=== PATIENT | male | born 1930 | race Hispanic/Latino ===

== ENCOUNTER 2017-09-08 12:26 | Inpatient (IN) | payer MEDICARE ==
[2017-09-08 15:25] VITALS: BMI 25.2
[2017-09-08] MEDS ORDERED: Sodium Chloride 0.9% 1,000 ML IV SCH (15:30)
[2017-09-08 17:02] LABS: Troponin I 0.098 ng/mL (< 0.028)
[2017-09-08] MEDS ORDERED: Ondansetron ODT 4 MG TAB PO PRN (19:03)
[2017-09-08] MEDS ORDERED: Dextrose 50% Abboject 50 ML SYRINGE SLOW IVP PRN (19:03)
[2017-09-08] MEDS ORDERED: PROVENTIL INHALER 6.7 G (200 INHALATIONS) INH PRN (19:03)
[2017-09-08] MEDS ORDERED: Dextrose 5% in Water 1,000 ML IV PRN (19:03)
[2017-09-08] MEDS ORDERED: Acetaminophen 500 MG TAB PO PRN (19:03)
[2017-09-08] MEDS ORDERED: Guaifenesin DM 100-10/5 ML UDCUP PO PRN (19:03)
[2017-09-08] MEDS ORDERED: Ondansetron HCl/PF 4 MG/2 ML Vial IVP PRN (19:03)
[2017-09-08] MEDS ORDERED: HumaLOG 300 UNITS/3 ML VIAL SC PRN (19:03)
[2017-09-08] MEDS ORDERED: cloNIDine 0.1 MG TAB PO PRN (19:03)
[2017-09-08] MEDS ORDERED: hydrALAZINE 20 MG/ML VIAL SLOW IVP PRN (19:03)
[2017-09-08] MEDS: Docusate 100 MG CAP PO SCH (20:53)
[2017-09-08] MEDS: Famotidine 20 MG TAB PO SCH (20:53)
[2017-09-08] MEDS: Oseltamivir 6 MG/ML ORAL SUSP PO SCH (20:55)
[2017-09-08] MEDS: Insulin NPH/Reg Insulin Hm 300 UNITS/3 ML VIAL SC SCH (20:56)
[2017-09-08] MEDS: Sodium Chloride 0.9% 1,000 ML IV SCH (20:56)
--- NOTE | 2017-09-09 02:10 | HP ---
DATE OF ADMISSION: 09/08/2017 PRIMARY CARE PHYSICIAN: Anna Elam MD with [facility] in [place], [place]. CHIEF COMPLAINT: Cough and confusion. HISTORY OF PRESENT ILLNESS: This is an 87-year-old male who presented to [facility] after family noted the patient with confusion, difficulty standing and falling at loyd e. The patient was noted with fever, increased cough and confusion in the company secretary hours by his spouse. The patient apparently developed symptoms overnight, however, was noted looking flushed wit h increased cough and congestion. No specific exposure history per family report and the states the patient received influenza and pneumonia vaccinations this season. The patient was noted in the emergency room with a temperature of 101.9 degrees Fahrenheit and was positive for influenza A. The family reports no specific interventions were performed at home and patient did not receive any medi cations for fever. The patient does complain of some general body aches, mild shortness of breath an d dry cough. Chest imaging performed in the emergency room showed no acute process; however, nasal s wab was positive for influenza A. The patient did receive Tamiflu x1 dose as well as 1 gram of Tylen ol, DuoNebs and intravenous normal saline. The patient was transferred to the observation unit for f urther evaluation. PAST MEDICAL HISTORY: 1. Remote tobacco use. 2. Status post CVA with residual right-sided weakness requiring a rolling walker for ambulation and standby assistance. 3. Hypertension. 4. Diabetes mellitus type 2, insulin requiring. 5. Chronic kidney disease stage III. 6. 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 PAST SURGICAL HISTORY: 1. Status post cataract removal. 2. Status post appendectomy. 3. Status post TURP for bladder outlet obstruction. 4. Status post left inguinal hernia repair. CURRENT MEDICATIONS: 1. Ventolin HFA 2 puffs inhaled q.6 h. p.r.n. 2. Amlodipine 10 mg 1 tab p.o. daily. 3. Enteric coated aspirin 81 mg 1 tab p.o. daily. 4. Colace 100 mg 1 tab p.o. b.i.d. 5. Glipizide XL 5 mg p.o. b.i.d. 6. Hydrochlorothiazide 25 mg p.o. daily. 7. Glargine insulin 55 units subcutaneously b.i.d. 8. NPH insulin 70/30 of 25 units subcutaneously b.i.d. 9. Multivitamin 1 tab p.o. daily. 10. Ranitidine 150 mg p.o. b.i.d. 11. Flomax 0.4 mg p.o. daily. ALLERGIES: No known drug allergies. FAMILY HISTORY: Positive for coronary artery disease. SOCIAL HISTORY: Patient is , resides in [facility]. Accompanied by multiple family members in the hospital room, all without mask or respiratory protective equipment. Remote history of tobacco use. No alcohol, tobacco or illicit drug use. Ambulatory with the use of a rolling walke r with standby assistance. REVIEW OF SYSTEMS: The following complete review of systems was negative, unless otherwise mentioned in the HPI or below: Constitutional: Weight loss or gain, ability to conduct usual activities. Skin: Rash, itching. Ey es: Double vision, pain. ENT/Mouth: Nose bleeding, neck stiffness, pain, tenderness. Cardiovascul ar: Palpitations, dyspnea on exertion, orthopnea. Respiratory: Shortness of breath, wheezing, coug h, hemoptysis, fever or night sweats. Gastrointestinal: Poor appetite, abdominal pain, heartburn, n ausea, vomiting, constipation, or diarrhea. Genitourinary: Urgency, frequency, dysuria, nocturia. Musculoskeletal: Pain, swelling. Neurologic/Psychiatric: Anxiety, depression. Allergy/Immunologic : Skin rash, bleeding tendency. PHYSICAL EXAMINATION: VITAL SIGNS: On admission, blood pressure 140/65, pulse 96, respiratory rate is 20, temperature 101. 8 degrees Fahrenheit, O2 saturation 97% on 2 liters per minute by nasal cannula. GENERAL APPEARANCE: This is an 87-year-old male, alert, responsive, in mild distress. HEENT: Pupils are equal, round, and reactive to light and accommodation. Extraocular muscles are in tact. No scleral icterus, no conjunctival injection. Nares patent. OP is clear. Oral mucosa dry. NECK: Supple, no cervical adenopathy, no thyromegaly, no carotid bruits, no JVD appreciated. Cervic al spine with full active and passive range of motion. No meningeal signs appreciated. CHEST: Lungs are clear to auscultation bilaterally. CARDIOVASCULAR: S1, S2 with tachycardia. ABDOMEN: Rounded, soft, nontender, nondistended. Bowel sounds are positive in all four quadrants. There is no hepatosplenomegaly, no abdominal bruits, no rebound or guarding appreciated. EXTREMITIES: Warm and dry with fair turgor. Warm to touch. Flushing noted diffusely. Pulses are p alpable distally at the dorsalis pedis, posterior tibial, and popliteal arteries bilaterally. Capill marco antonio refill less than 2 seconds. NEUROLOGIC: Cranial nerves II-XII are grossly intact. The patient not observed ambulatory during th is exam. Alert and oriented x2. PERTINENT LABORATORY AND X-RAY FINDINGS: Sodium 133, potassium 3.4, chloride 96, CO2 of 24, anion ga p 16, BUN 22, creatinine 2.03 with estimated GFR 31, glucose 188. Lactic acid level 1.6, calcium 9.0 . LFTs within normal limits. Troponin I ranged between 0.090-0.10. CBC showed a white blood cell c ount of 7.0, hemoglobin 18, hematocrit 54, platelet count 227 with 68% neutrophils. Urinalysis posit brayan for protein and glucose. Nasal swab showed influenza A positive, 09/08/2017. Portable chest x-r ay dated 09/08/2017 showed no acute cardiopulmonary process. CT of the brain without contrast dated 09/08/2017 showed no acute intracranial process. Moderate chronic ischemic white matter changes note d. EKG dated 09/08/2017 by my interpretation shows sinus mechanism with heart rates in the 90s. Nor mal R-wave progression noted in the precordial leads. Questionable right bundle branch block pattern . Normal axis. No acute ST-T wave changes appreciated. ASSESSMENT AND PLAN: 1. Influenza A positive. The patient will be placed in observation status. We will continue Tamifl u 30 mg p.o. b.i.d. secondary to chronic kidney disease stage III. Continue general supportive measu res, Ventolin HFA 2 puffs inhaled q.6 h. p.r.n. Oxygen as needed to keep O2 saturations greater than or equal to 90%. 2. Acute metabolic encephalopathy. Secondarily to #1 and likely febrile delirium. Continue support brayan measures as outlined in #1. 3. Chronic kidney disease stage III. Continue intravenous normal saline at 100 mL per hour. Avoid nephrotoxic agents and contrast media. Repeat creatinine in the a.m. 4. Diabetes mellitus type 2, insulin requiring. Insulin sliding scale for reflexive coverage. Cont inue NPH 70/30 of 25 units subcutaneously b.i.d. ADA diet. 5. Elevated troponin I. Suspect demand ischemia in the context of an acute infectious process. No current evidence to suggest acute coronary syndrome. We will continue to monitor clinical response. Continue aspirin 81 mg daily. 6. Prophylaxis. Sequential compression devices while in bed. Pepcid 20 mg p.o. b.i.d. Respiratory precautions. 7. Code status is FULL. Surrogate medical decision maker is patient's spouse.
[2017-09-09] MEDS: Sodium Chloride 0.9% 1,000 ML IV SCH ×2 (02:46→10:12)
[2017-09-09 06:25] LABS: Anion Gap 10 mmol/L (10-20); BUN (Urea Nitrogen) 26 mg/dL (8.4-25.7); Calc. Creatinine Clearance 32 mL/min (70-130); Carbon Dioxide 21 mmol/L (23-31); Chloride 105 mmol/L (98-107); Estimated GFR-MDRD 41
[2017-09-09 06:31] LABS: Hematocrit 45.5 % (42.0-52.0); Red Blood Cell (RBC) Count 4.81 mill/uL (4.70-6.10); White Blood Cell (WBC) Count 7.2 thou/uL (4.8-10.8)
[2017-09-09 06:32] LABS: Band 12 % (5-11); Mean Platelet Volume 7.8 fL (7.4-10.4); Neutrophil 61 % (42-75)
[2017-09-09] MEDS: Tamsulosin HCl 0.4 MG CAP PO SCH (08:09)
[2017-09-09] MEDS: Docusate 100 MG CAP PO SCH ×2 (08:09→21:21)
[2017-09-09] MEDS: Multivitamin W/ Minerals 1 TAB PO SCH (08:09)
[2017-09-09] MEDS: Amlodipine 10 MG TAB PO SCH (08:09)
[2017-09-09] MEDS: Famotidine 20 MG TAB PO SCH ×2 (08:10→21:21)
[2017-09-09] MEDS: Aspirin 81 mg Enteric Coated Tablet PO SCH (08:10)
--- NOTE | 2017-09-09 09:13 | PDOC.PN ---
- Subjective Encounter Start Date: 09/09/17 Encounter Start Time: 08:35 Subjective: f/u for Influenza A on Tamiflu. Still with prominent cough. reports pt -: unable to stand up today. - Objective Resuscitation Status: Resuscitation Status FULL:Full Resuscitation MAR Reviewed: Yes Vital Signs & Weight: Vital Signs (12 hours) Temp Pulse Resp BP BP Pulse Ox 09/09/17 08:09 63 09/09/17 08:00 98.4 F 63 16 09/09/17 07:40 98.4 F 58 L 16 115/59 L 97 09/09/17 02:58 99.1 F 63 20 117/69 96 09/08/17 23:45 99.0 F 67 22 H 129/62 97 Weight Weight 157 lb 4.8 oz I&O: 09/08/17 09/09/17 09/10/17 06:59 06:59 06:59 Intake Total 1991 Balance 1991 Result Diagrams: 09/09/17 05:25 09/09/17 05:25 Additional Labs: Accuchecks 09/09/17 09/08/17 09/08/17 05:25 20:55 16:44 POC Glucose 80 223 H 188 H Microbiology 09/08/17 09:10 Nasal swab Influenza Types A,B Direct EIA - Final Laboratory Tests 09/08/17 09/08/17 09/08/17 08:32 08:32 13:11 Sodium 133 L Potassium 3.4 L Creatinine 2.03 H Troponin I 0.090 H 0.100 H 09/08/17 16:24 Sodium Potassium Creatinine Troponin I 0.098 H EKG Reviewed by me: Yes (Tele - SR) Phys Exam - Physical Examination Constitutional: NAD HEENT: PERRLA, oral pharynx no lesions Neck: no JVD, supple bilat inspiratory and expiratory wheezing Cardiovascular: RRR Gastrointestinal: soft, non-tender, no distention, positive bowel sounds Musculoskeletal: no edema, pulses present Neurological: normal sensation, moves all 4 limbs Skin: normal turgor, cap refill <2 seconds Dx/Plan (1) Influenza A Code(s): J10.1 - FLU DUE TO OTH IDENT INFLUENZA VIRUS W OTH RESP MANIFEST Status: Acute Comment: Continue Tamiflu 30mg BID, respiratory isolation, add Duonebs q4h (2) MARIE (acute kidney injury) Code(s): N17.9 - ACUTE KIDNEY FAILURE, UNSPECIFIED Status: Acute Comment: Mild improvement, continue IVF NS at 50ml/h, avoid nephrotoxic meds (3) Hypokalemia Code(s): E87.6 - HYPOKALEMIA Status: Acute Comment: ? subacute, KCL 40meq BID x 4 doses, recheck K+ level in am (4) Hyponatremia Code(s): E87.1 - HYPO-OSMOLALITY AND HYPONATREMIA Status: Chronic (5) Physical deconditioning Code(s): R53.81 - OTHER MALAISE Status: Acute Comment: PT evaluation, fall risk (6) CKD (chronic kidney disease), stage IV Code(s): N18.4 - CHRONIC KIDNEY DISEASE, STAGE 4 (SEVERE) Status: Chronic (7) Diabetes type 2, controlled Code(s): E11.9 - TYPE 2 DIABETES MELLITUS WITHOUT COMPLICATIONS Status: Chronic - Plan plan discussed w/ family, PT/OT, social worker, respiratory therapy, DVT proph w/SCDs Continue Tamiflu 30mg BID -: Respiratory isolation -: Continue IVF's -: Add Duonebs q4h -: Convert to inpt status today * AM lab: BMP
[2017-09-09] MEDS: Oseltamivir 6 MG/ML ORAL SUSP PO SCH ×2 (10:12→21:22)
[2017-09-09] MEDS: Insulin NPH/Reg Insulin Hm 300 UNITS/3 ML VIAL SC SCH ×2 (10:13→21:21)
[2017-09-09] MEDS: HumaLOG 300 UNITS/3 ML VIAL SC PRN ×2 (11:52→17:29)
[2017-09-09] MEDS: Potassium Chloride 20 MEQ TAB PO SCH (17:30)
[2017-09-10] MEDS: Sodium Chloride 0.9% 1,000 ML IV SCH ×2 (06:13→13:51)
[2017-09-10 06:35] LABS: Anion Gap 9 mmol/L (10-20); BUN (Urea Nitrogen) 26 mg/dL (8.4-25.7); Calc. Creatinine Clearance 32 mL/min (70-130); Calcium 8.1 mg/dL (7.8-10.44); Carbon Dioxide 22 mmol/L (23-31); Chloride 105 mmol/L (98-107); Estimated GFR-MDRD 42
[2017-09-10] MEDS: Aspirin 81 mg Enteric Coated Tablet PO SCH (09:26)
[2017-09-10] MEDS: Multivitamin W/ Minerals 1 TAB PO SCH (09:26)
[2017-09-10] MEDS: Tamsulosin HCl 0.4 MG CAP PO SCH (09:26)
[2017-09-10] MEDS: Famotidine 20 MG TAB PO SCH ×2 (09:26→21:24)
[2017-09-10] MEDS: Potassium Chloride 20 MEQ TAB PO SCH ×2 (09:26→17:04)
[2017-09-10] MEDS: Amlodipine 10 MG TAB PO SCH (09:27)
[2017-09-10] MEDS: Docusate 100 MG CAP PO SCH ×2 (09:27→22:07)
[2017-09-10] MEDS: Insulin NPH/Reg Insulin Hm 300 UNITS/3 ML VIAL SC SCH ×2 (09:28→22:08)
[2017-09-10] MEDS: Oseltamivir 6 MG/ML ORAL SUSP PO SCH ×2 (11:34→21:24)
--- NOTE | 2017-09-10 13:32 | PDOC.PN ---
- Subjective Encounter Start Date: 09/10/17 Encounter Start Time: 13:30 Subjective: no complaints - Objective Resuscitation Status: Resuscitation Status FULL:Full Resuscitation MAR Reviewed: Yes Vital Signs & Weight: Vital Signs (12 hours) Temp Pulse Resp BP BP Pulse Ox Pulse Ox 09/10/17 11:30 98.1 F 86 24 H 139/65 96 09/10/17 09:58 96 09/10/17 09:30 69 18 96 09/10/17 08:34 98.7 F 69 20 124/65 95 09/10/17 08:00 98.7 F 69 18 95 09/10/17 06:06 74 16 95 09/10/17 03:30 98.5 F 77 18 115/59 L 97 09/10/17 02:02 67 16 95 Pulse Ox 09/10/17 11:30 09/10/17 09:58 96 09/10/17 09:30 09/10/17 08:34 09/10/17 08:00 09/10/17 06:06 09/10/17 03:30 09/10/17 02:02 Weight Weight 157 lb 3.2 oz I&O: 09/09/17 09/10/17 09/11/17 06:59 06:59 06:59 Intake Total 1991 807 Output Total 600 Balance 1991 207 Result Diagrams: 09/09/17 05:25 09/10/17 05:14 Additional Labs: Accuchecks 09/10/17 09/09/17 09/09/17 11:36 20:18 16:50 POC Glucose 157 H 203 H 264 H Radiology Reviewed by me: Yes Phys Exam - Physical Examination Constitutional: NAD HEENT: PERRLA, moist MMs, sclera anicteric Neck: supple, full ROM Respiratory: wheezing present Cardiovascular: RRR, no significant murmur Gastrointestinal: soft, non-tender, positive bowel sounds Musculoskeletal: no edema, pulses present Neurological: non-focal, normal sensation, moves all 4 limbs Psychiatric: normal affect Deviation from normal: alert and oriented to person only Skin: no rash Dx/Plan (1) Influenza A Code(s): J10.1 - FLU DUE TO OTH IDENT INFLUENZA VIRUS W OTH RESP MANIFEST Status: Acute Comment: Continue Tamiflu 30mg BID, respiratory isolation, add Duonebs q4h (2) CKD (chronic kidney disease), stage IV Code(s): N18.4 - CHRONIC KIDNEY DISEASE, STAGE 4 (SEVERE) Status: Chronic (3) Diabetes type 2, controlled Code(s): E11.9 - TYPE 2 DIABETES MELLITUS WITHOUT COMPLICATIONS Status: Chronic (4) Dyslipidemia Code(s): E78.5 - HYPERLIPIDEMIA, UNSPECIFIED Status: Chronic (5) Hypertension Code(s): I10 - ESSENTIAL (PRIMARY) HYPERTENSION Status: Chronic - Plan cont current plan of care continue anti viral, mentation may be near baseline, will d/w family * .
[2017-09-11 05:57] LABS: Anion Gap 12 mmol/L (10-20); BUN (Urea Nitrogen) 17 mg/dL (8.4-25.7); Calc. Creatinine Clearance 39 mL/min (70-130); Carbon Dioxide 18 mmol/L (23-31); Chloride 111 mmol/L (98-107); Estimated GFR-MDRD 51
[2017-09-11] MEDS: Insulin NPH/Reg Insulin Hm 300 UNITS/3 ML VIAL SC SCH ×2 (10:00→23:11)
[2017-09-11] MEDS: Potassium Chloride 20 MEQ TAB PO SCH ×2 (10:01→18:04)
[2017-09-11] MEDS: Oseltamivir 6 MG/ML ORAL SUSP PO SCH ×2 (10:01→23:32)
[2017-09-11] MEDS: Multivitamin W/ Minerals 1 TAB PO SCH (10:01)
[2017-09-11] MEDS: Docusate 100 MG CAP PO SCH ×2 (10:02→23:12)
[2017-09-11] MEDS: Amlodipine 10 MG TAB PO SCH (10:02)
[2017-09-11] MEDS: Famotidine 20 MG TAB PO SCH ×2 (10:02→23:12)
[2017-09-11] MEDS: Tamsulosin HCl 0.4 MG CAP PO SCH (10:02)
[2017-09-11] MEDS: Aspirin 81 mg Enteric Coated Tablet PO SCH (10:02)
[2017-09-11] MEDS: Sodium Chloride 0.9% 1,000 ML IV SCH (10:47)
[2017-09-11] MEDS: HumaLOG 300 UNITS/3 ML VIAL SC PRN (12:48)
--- NOTE | 2017-09-11 13:39 | PDOC.PN ---
- Subjective Encounter Start Date: 09/11/17 Encounter Start Time: 13:38 Subjective: pt feels better, reports mentation near baseline - Objective Resuscitation Status: Resuscitation Status FULL:Full Resuscitation Vital Signs & Weight: Vital Signs (12 hours) Temp Pulse Resp BP BP BP Pulse Ox 09/11/17 12:00 97.6 F 65 16 127/63 94 L 09/11/17 10:02 67 137/74 09/11/17 07:59 97.1 F L 67 20 137/74 100 09/11/17 04:57 98.2 F 73 18 130/68 94 L 09/11/17 02:44 65 16 95 Weight Weight 160 lb I&O: 09/10/17 09/11/17 09/12/17 06:59 06:59 06:59 Intake Total 807 797 Output Total 600 Balance 207 797 Result Diagrams: 09/09/17 05:25 09/11/17 04:57 Additional Labs: Accuchecks 09/11/17 09/11/17 09/10/17 12:22 05:46 21:58 POC Glucose 268 H 160 H 79 09/10/17 16:54 POC Glucose 82 Phys Exam - Physical Examination Constitutional: NAD HEENT: PERRLA, moist MMs, sclera anicteric Neck: supple, full ROM Respiratory: wheezing present rhonchi Cardiovascular: RRR Gastrointestinal: soft, non-tender Musculoskeletal: no edema Neurological: non-focal, moves all 4 limbs Psychiatric: normal affect Deviation from normal: alert and oriented x2 Dx/Plan (1) Influenza A Code(s): J10.1 - FLU DUE TO OTH IDENT INFLUENZA VIRUS W OTH RESP MANIFEST Status: Acute Comment: Continue Tamiflu 30mg BID, respiratory isolation, add Duonebs q4h (2) CKD (chronic kidney disease), stage IV Code(s): N18.4 - CHRONIC KIDNEY DISEASE, STAGE 4 (SEVERE) Status: Chronic (3) Diabetes type 2, controlled Code(s): E11.9 - TYPE 2 DIABETES MELLITUS WITHOUT COMPLICATIONS Status: Chronic (4) Dyslipidemia Code(s): E78.5 - HYPERLIPIDEMIA, UNSPECIFIED Status: Chronic (5) Hypertension Code(s): I10 - ESSENTIAL (PRIMARY) HYPERTENSION Status: Chronic - Plan cont current plan of care, respiratory therapy MRI pending, continue duonebs * .
--- NOTE | 2017-09-11 15:35 | MRI ---
MRI of the brain without contrast: COMPARISON: 02/27/15. HISTORY: History of stroke. Speech and gait deficits. TECHNIQUE: Multiplanar, multisequence MR images were obtained of the brain without contrast. FINDINGS: This exam is limited secondary to motion artifact. There are diffuse scattered foci of high T2/FLAIR signal in the subcortical and periventricular white matter, likely secondary to small-vessel ischemi c disease. No restricted diffusion is seen to suggest an acute infarction. There is no evidence of hydrocephalus, intracranial hemorrhage, or extraaxial fluid collection. The expected flow voids are present. The corpus callosum, pituitary, and craniocervical junction are unr emarkable. The calvarium and overlying soft tissues are unremarkable. Mild mucosal thickening is seen in the pa ranasal sinuses. Fluid is seen in the bilateral mastoid air cells, left greater than right. IMPRESSION: Extensive small-vessel ischemic disease without acute intracranial abnormality. POS: RAMO
[2017-09-12 05:27] LABS: Anion Gap 10 mmol/L (10-20); BUN (Urea Nitrogen) 15 mg/dL (8.4-25.7); Calc. Creatinine Clearance 42 mL/min (70-130); Calcium 8.2 mg/dL (7.8-10.44); Carbon Dioxide 16 mmol/L (23-31); Chloride 112 mmol/L (98-107); Estimated GFR-MDRD 55
[2017-09-12] MEDS: Aspirin 81 mg Enteric Coated Tablet PO SCH (09:49)
[2017-09-12] MEDS: Famotidine 20 MG TAB PO SCH ×2 (09:49→21:03)
[2017-09-12] MEDS: Potassium Chloride 20 MEQ TAB PO SCH ×2 (09:49→16:44)
[2017-09-12] MEDS: Amlodipine 10 MG TAB PO SCH (09:49)
[2017-09-12] MEDS: Tamsulosin HCl 0.4 MG CAP PO SCH (09:49)
[2017-09-12] MEDS: Multivitamin W/ Minerals 1 TAB PO SCH (09:50)
[2017-09-12] MEDS: Docusate 100 MG CAP PO SCH ×2 (09:53→21:02)
[2017-09-12] MEDS: Sodium Chloride 0.9% 1,000 ML IV SCH (09:54)
[2017-09-12] MEDS: Insulin NPH/Reg Insulin Hm 300 UNITS/3 ML VIAL SC SCH ×2 (10:00→21:03)
[2017-09-12] MEDS: Oseltamivir 6 MG/ML ORAL SUSP PO SCH ×2 (10:30→21:03)
--- NOTE | 2017-09-12 13:05 | PDOC.PN ---
- Subjective Encounter Start Date: 09/12/17 Encounter Start Time: 12:20 Subjective: no complaints, family at bedside - Objective Resuscitation Status: Resuscitation Status FULL:Full Resuscitation MAR Reviewed: Yes Vital Signs & Weight: Vital Signs (12 hours) Temp Pulse Resp BP BP Pulse Ox 09/12/17 10:38 66 16 99 09/12/17 09:49 79 09/12/17 08:00 98.2 F 62 19 95 09/12/17 07:59 98.2 F 79 19 152/83 H 95 09/12/17 07:37 62 14 93 L 09/12/17 04:00 97.8 F 69 20 125/67 93 L 09/12/17 02:54 98 14 93 L Weight Weight 160 lb I&O: 09/11/17 09/12/17 09/13/17 06:59 06:59 06:59 Intake Total 797 929 Output Total 750 Balance 797 179 Result Diagrams: 09/09/17 05:25 09/12/17 04:51 Additional Labs: Accuchecks 09/12/17 09/12/17 09/12/17 12:39 10:01 05:50 POC Glucose 250 H 259 H 64 L 09/11/17 09/11/17 23:18 16:37 POC Glucose 117 H 112 H Phys Exam - Physical Examination Constitutional: NAD HEENT: PERRLA, moist MMs, sclera anicteric Respiratory: wheezing present rhonchi Cardiovascular: RRR meri Gastrointestinal: soft, non-tender Musculoskeletal: no edema Neurological: moves all 4 limbs Psychiatric: normal affect, A&O x 3 Skin: no rash Dx/Plan (1) Influenza A Code(s): J10.1 - FLU DUE TO OTH IDENT INFLUENZA VIRUS W OTH RESP MANIFEST Status: Acute Comment: Continue Tamiflu 30mg BID, respiratory isolation, add Duonebs q4h (2) CKD (chronic kidney disease), stage IV Code(s): N18.4 - CHRONIC KIDNEY DISEASE, STAGE 4 (SEVERE) Status: Chronic (3) Diabetes type 2, controlled Code(s): E11.9 - TYPE 2 DIABETES MELLITUS WITHOUT COMPLICATIONS Status: Chronic (4) Dyslipidemia Code(s): E78.5 - HYPERLIPIDEMIA, UNSPECIFIED Status: Chronic (5) Hypertension Code(s): I10 - ESSENTIAL (PRIMARY) HYPERTENSION Status: Chronic (6) Hyperkalemia Code(s): E87.5 - HYPERKALEMIA Status: Acute Plan: he is on duonebs,expect k to drop - Plan cont current plan of care, plan discussed w/ family, respiratory therapy home tomorrow if appropriate * .
[2017-09-12] MEDS: HumaLOG 300 UNITS/3 ML VIAL SC PRN (13:33)
[2017-09-13] MEDS: Sodium Chloride 0.9% 1,000 ML IV SCH (05:37)
[2017-09-13 06:13] LABS: #Eosinphils 0.1 thou/uL (0.0-0.7); #Lymphocytes 1.2 thou/uL (1.20-3.40); #Monocytes 0.6 thou/uL (0.11-0.59); #Neutrophils 5.7 thou/uL (1.40-6.50); %Basophils 0.1 % (0.0-1.0); %Eosinophils 0.9 % (0.0-10.0); %Lymphocytes 15.8 % (21.0-51.0); %Monocytes 7.5 % (0.0-10.0); Hematocrit 42.1 % (42.0-52.0); Mean Platelet Volume 7.5 fL (7.4-10.4); Red Blood Cell (RBC) Count 4.41 mill/uL (4.70-6.10); White Blood Cell (WBC) Count 7.5 thou/uL (4.8-10.8)
[2017-09-13 06:36] LABS: Anion Gap 11 mmol/L (10-20); BUN (Urea Nitrogen) 10 mg/dL (8.4-25.7); Calc. Creatinine Clearance 40 mL/min (70-130); Calcium 8.6 mg/dL (7.8-10.44); Carbon Dioxide 21 mmol/L (23-31); Chloride 107 mmol/L (98-107); Estimated GFR-MDRD 53
[2017-09-13] MEDS: Potassium Chloride 20 MEQ TAB PO SCH (08:40)
[2017-09-13] MEDS: Aspirin 81 mg Enteric Coated Tablet PO SCH (09:57)
[2017-09-13] MEDS: Oseltamivir 6 MG/ML ORAL SUSP PO SCH ×3 (09:57→10:00)
[2017-09-13] MEDS: Famotidine 20 MG TAB PO SCH (09:58)
[2017-09-13] MEDS: Docusate 100 MG CAP PO SCH (09:58)
[2017-09-13] MEDS: Multivitamin W/ Minerals 1 TAB PO SCH (09:58)
[2017-09-13] MEDS: Amlodipine 10 MG TAB PO SCH (09:58)
[2017-09-13] MEDS: Tamsulosin HCl 0.4 MG CAP PO SCH (09:58)
[2017-09-13] MEDS: Insulin NPH/Reg Insulin Hm 300 UNITS/3 ML VIAL SC SCH (10:01)
--- NOTE | 2017-09-13 10:10 | PDOC.PN ---
- Subjective Encounter Start Date: 09/13/17 Encounter Start Time: 10:08 Subjective: PATIENT FEELS BETTER, LUNGS SOUND BETTER - Objective Resuscitation Status: Resuscitation Status FULL:Full Resuscitation MAR Reviewed: Yes Vital Signs & Weight: Vital Signs (12 hours) Temp Pulse Resp BP BP Pulse Ox 09/13/17 09:58 96 09/13/17 09:34 96 16 09/13/17 08:39 97.7 F 68 19 98 09/13/17 07:53 97.7 F 68 19 157/79 H 98 09/13/17 04:00 98.7 F 71 20 133/79 100 09/13/17 02:38 72 24 H 96 09/12/17 22:36 67 16 97 Weight Weight 158 lb 12.8 oz I&O: 09/12/17 09/13/17 09/14/17 06:59 06:59 06:59 Intake Total 929 970 Output Total 750 450 Balance 179 520 Result Diagrams: 09/13/17 05:38 09/13/17 05:38 Additional Labs: Accuchecks 09/13/17 09/12/17 09/12/17 06:01 20:40 16:54 POC Glucose 190 H 174 H 62 L 09/12/17 09/12/17 12:39 10:01 POC Glucose 250 H 259 H Phys Exam - Physical Examination Constitutional: NAD HEENT: PERRLA, moist MMs, sclera anicteric Neck: supple, full ROM Respiratory: wheezing present Cardiovascular: RRR Gastrointestinal: soft, non-tender, no distention Musculoskeletal: no edema Neurological: non-focal, moves all 4 limbs Psychiatric: normal affect, A&O x 3 Skin: no rash Dx/Plan (1) Influenza A Code(s): J10.1 - FLU DUE TO OTH IDENT INFLUENZA VIRUS W OTH RESP MANIFEST Status: Acute Comment: Continue Tamiflu 30mg BID, respiratory isolation, add Duonebs q4h (2) CKD (chronic kidney disease), stage IV Code(s): N18.4 - CHRONIC KIDNEY DISEASE, STAGE 4 (SEVERE) Status: Chronic (3) Diabetes type 2, controlled Code(s): E11.9 - TYPE 2 DIABETES MELLITUS WITHOUT COMPLICATIONS Status: Chronic (4) Dyslipidemia Code(s): E78.5 - HYPERLIPIDEMIA, UNSPECIFIED Status: Chronic (5) Hypertension Code(s): I10 - ESSENTIAL (PRIMARY) HYPERTENSION Status: Chronic (6) Hyperkalemia Code(s): E87.5 - HYPERKALEMIA Status: Acute - Plan POTASSIUM 5.9 -: HOLD KCL SUPPLEMENTS, ALBUTEROL AND KAYEXALATE -: RECHECK LAB ...DC TO HOME IF LOWER POTASSIUM * .
[2017-09-13 19:55] VITALS: BP 149/74; TEMP 99.6
--- NOTE | 2017-09-13 22:21 | DIS ---
DATE OF ADMISSION: 09/08/2017 DATE OF DISCHARGE: 09/13/2017 PRIMARY DISCHARGE DIAGNOSES: 1. Influenza A. 2. Toxic metabolic encephalopathy. 2. Diabetes mellitus type 2. 3. Chronic kidney disease stage 3. 4. History of cerebrovascular accident. HOSPITAL COURSE: The patient is a pleasant gentleman who presented with complaints of cough and conf usion. The patient initially was altered according to his family. He does have baseline dementia. The patient had a positive nasal swab for influenza A. He was treated with Tamiflu and IV fluids. T he patient's mentation returned to baseline per his family. The patient was noted to have lots of pu lmonary hypersensitivity with rhonchi and wheezes. We kept him and administered DuoNebs for bronchod ilation. The patient also had an MRI which showed extensive small vessel ischemic disease without ac grindstone intracranial abnormalities. The patient on 09/13/2017 was noted to have a potassium of 5.9. Ingrid exalate and albuterol were administered and the potassium returned to a level of 5.2. Thus, the amrik ent was deemed stable for discharge with outpatient followup with his PCP and continued fluid resusci tation. PROCEDURES: Brain MRI, results as above. DISCHARGE DISPOSITION: To home. DISCHARGE ACTIVITY: As tolerated. DISCHARGE DIET: Heart healthy. DISCHARGE MEDICATIONS: The patient will resume his home meds. Family instructed to refrain from adm inistering any potassium supplements to the patient. PHYSICAL EXAMINATION: GENERAL: He is in no acute distress. HEENT: Normocephalic, atraumatic. EYES: PERRL. Extraocular muscles intact. CHEST: Still with scant wheezes throughout. CARDIOVASCULAR: Regular rate and rhythm. Systolic ejection murmur 2/6. ABDOMEN: Nontender, nondistended. EXTREMITIES: No clubbing, cyanosis, or edema. FOLLOWUP: The patient is to follow up with his PCP within 7 days or sooner if need be and to return to ED if he has any other untoward events that develop.
== END 2017-09-13 19:50 | disposition home or self-care (01) | DRG 193 ==
LOC: ERS 12:26 → OBSVTOIN 14:02 → 2SW 14:02 → 2NO 09-10 17:11
PROVIDERS: ADMIT Family Medicine; ATTEND Family Medicine
DX: J10.1 Influenza due to other identified influenza virus with other respiratory manifestations (principal); G92 Toxic encephalopathy; N18.4 Chronic kidney disease, stage 4 (severe); N17.9 Acute kidney failure, unspecified; F05 Delirium due to known physiological condition; I24.8 Other forms of acute ischemic heart disease; E11.22 Type 2 diabetes mellitus with diabetic chronic kidney disease; I69.951 Hemiplegia and hemiparesis following unspecified cerebrovascular disease affecting right dominant side; E87.1 Hypo-osmolality and hyponatremia; Z79.4 Long term (current) use of insulin; I12.9 Hypertensive chronic kidney disease with stage 1 through stage 4 chronic kidney disease, or unspecified chronic kidney disease; N40.1 Benign prostatic hyperplasia with lower urinary tract symptoms; R33.8 Other retention of urine; Z79.82 Long term (current) use of aspirin; E78.5 Hyperlipidemia, unspecified; E87.5 Hyperkalemia; E87.6 Hypokalemia; F32.9 Major depressive disorder, single episode, unspecified
CPT/HCPCS: 36415; 36416; 70551; 80048; 85007; 85025; 85027; 94640; 94760; A4216; G8978-GP-CM; G8979-GP-CK; J7620